=== PATIENT | female | born 1980 | race African-American/Black ===

== ENCOUNTER 2023-10-24 15:47 | Emergency (ER) | payer MEDICAID ==
[~2023-10-24] VITALS: Ht 165.1 cm; Wt 54.0 kg
[2023-10-24 15:50] VITALS: O2SAT 99
[2023-10-24 16:17] VITALS: BP 93/44; PULSE 74; RESP 16; TEMP 98.8; O2SAT 99
== END 2023-10-24 21:03 | disposition home or self-care (01) ==
LOC: ER 15:47
DX: S92.322A Displaced fracture of second metatarsal bone, left foot, initial encounter for closed fracture (principal); Z98.51 Tubal ligation status; X58.XXXA Exposure to other specified factors, initial encounter; Y93.89 Activity, other specified; Y92.89 Other specified places as the place of occurrence of the external cause; Y99.8 Other external cause status
CPT/HCPCS: 73630; 99283